=== PATIENT | female | born 1945 | race Caucasian/White ===

== ENCOUNTER → 2016-07-29 | Outpatient (CLI) | payer MEDICARE ==
--- NOTE | 2016-07-29 14:48 | US ---
EXAMINATION TYPE: US kidneys/renal and bladder DATE OF EXAM: 07/29/2016 11:13 AM COMPARISON: NONE CLINICAL HISTORY: Hematuria R31.9. Microscopic hematuria, no symtpoms, recent UTI's EXAM MEASUREMENTS: Right Kidney: 10.3 x 4.7 x 4.9cm Left Kidney: 10.2 x 4.6 x 4.4cm TECHNOLOGIST IMPRESSION: Right Kidney: wnl Left Kidney: Loop of bowel obscuring left renal, had patient roll RLD and it persisted, images of lef t kidney appear wnl Bladder: wnl Bilateral Jets seen: no IMPRESSION: Normal retroperitoneal ultrasound.
== END | disposition home or self-care (01) ==
LOC: RADUSWWP 10:54
PROVIDERS: ATTEND Internal Medicine Geriatric Medicine
DX: R31.9 Hematuria, unspecified (principal)
CPT/HCPCS: 76770

== ENCOUNTER → 2016-08-22 | Outpatient (CLI) | payer MEDICARE ==
[2016-08-22 12:11] LABS: Basophils % (A) 1 %; CH 30.7; CHCM 32.7; Eosinophils # (A) 0.2 k/uL (0-0.7); Eosinophils % (A) 2 %; HCT 52.2 % (34.0-46.0); HDW 2.64; HGB 16.5 gm/dL (11.4-16.0); Luc # (Auto) 0.14; Luc % (Auto) 2; Lymphocytes # (A) 2.6 k/uL (1.0-4.8); Lymphocytes % (A) 30 %; MCH 29.8 pg (25.0-35.0); MCHC 31.6 g/dL (31.0-37.0); MCV 94.4 fL (80.0-100.0); Mean Platelet Volume 7.2; Monocytes # (A) 0.4 k/uL (0-1.0); Monocytes % (A) 4 %; Neutrophils # (A) 5.4 k/uL (1.3-7.7); Neutrophils % (A) 62 %; RBC 5.53 m/uL (3.80-5.40); RDW 13.6 % (11.5-15.5); WBC 8.8 k/uL (3.8-10.6); WBC (Perox) 8.79
[2016-08-22 12:15] LABS: Appearance,Urine Clear (Clear); Bilirubin,Urine Negative (Negative); Glucose,Urine (UA) Negative (Negative); Ketones,Urine Negative (Negative); Leukocyte Esterase,Urine Moderate (Negative); Mucus,Urine Rare /hpf; Nitrite,Urine Negative (Negative); PH, Urine 7.5 (5.0-8.0); Particle Count 1977; Protein,Urine Trace (Negative); RBC,Urine 5 /hpf (0-5); Specific Gravity,Urine 1.016 (1.001-1.035); Squamous Epithelial Cell,Urine 1 /hpf (0-4); UA Billing (MACRO vs. MICRO) MICRO; Urobilinogen,Urine <2.0 mg/dL (<2.0); WBC,Urine 13 /hpf (0-5)
[2016-08-22 12:25] LABS: ALT 40 U/L (9-52); AST 29 U/L (14-36); Alkaline Phosphatase 93 U/L (38-126); Anion Gap 10 mmol/L; Blood Urea Nitrogen 17 mg/dL (7-17); Calcium 9.8 mg/dL (8.4-10.2); Carbon Dioxide 31 mmol/L (22-30); Chloride 103 mmol/L (98-107); Cholesterol 192 mg/dL (<200); Glucose 108 mg/dL (74-99); HDL Cholesterol 58 mg/dL (40-60); Non-African American GFR(MDRD) >60 (>60 ml/min/1.73 sqM); Potassium 4.3 mmol/L (3.5-5.1); Sodium 144 mmol/L (137-145); Total Bilirubin 0.7 mg/dL (0.2-1.3); Total Protein 7.2 g/dL (6.3-8.2); Triglycerides 191 mg/dL (<150)
== END | disposition home or self-care (01) ==
LOC: LABWHC1 11:28
PROVIDERS: ATTEND Internal Medicine Geriatric Medicine
DX: E11.9 Type 2 diabetes mellitus without complications (principal); E03.9 Hypothyroidism, unspecified; E78.5 Hyperlipidemia, unspecified; Z79.899 Other long term (current) drug therapy
CPT/HCPCS: 36415; 80053; 80061; 81001; 83036; 84439; 84443; 85025

== ENCOUNTER → 2018-02-02 | Outpatient (CLI) | payer MEDICARE ==
[2018-02-02 12:25] LABS: HCT 45.7 % (34.0-46.0); HGB 14.9 gm/dL (11.4-16.0); MCH 30.4 pg (25.0-35.0); MCHC 32.7 g/dL (31.0-37.0); MCV 92.9 fL (80.0-100.0); Mean Platelet Volume 7.7; Platelet Count 204 k/uL (150-450); RBC 4.91 m/uL (3.80-5.40); WBC 8.8 k/uL (3.8-10.6)
[2018-02-02 12:47] LABS: Potassium 3.8 mmol/L (3.5-5.1)
== END | disposition home or self-care (01) ==
LOC: LABPAT 11:50
PROVIDERS: ATTEND Internal Medicine Interventional Cardiology
DX: Z01.812 Encounter for preprocedural laboratory examination (principal); E78.2 Mixed hyperlipidemia; I42.1 Obstructive hypertrophic cardiomyopathy; I25.10 Atherosclerotic heart disease of native coronary artery without angina pectoris
CPT/HCPCS: 36415; 80051; 82565; 84520; 85027

== ENCOUNTER 2018-02-06 09:45 | Day surgery (SDC) | payer MEDICARE ==
[2018-02-02 12:46] VITALS: BMI 27.1
[~2018-02-06 09:45] MED LIST: ALPRAZolam 0.25 MG TAB PO PRN; ASPIRIN 325 MG TAB PO ONE; NITROGLYCERIN SL TABS 0.4 MG TAB SUBLINGUAL PRN; SODIUM CHLORIDE 0.9% 1,000 ML in EMPTY BAG 1 BAG IV ONE
[2018-02-06] MEDS ORDERED: VERAPAMIL 2.5 MG/ML 2 ML AMP ONE ×2 (11:52→12:39)
[2018-02-06] MEDS ORDERED: LIDOCAINE 1% INJ 10MG/ML (20 ML MDV) ONE (11:52)
[2018-02-06] MEDS ORDERED: fentaNYL (PF) 50 MCG/ML 2 ML AMP ONE (11:52)
[2018-02-06] MEDS ORDERED: fentaNYL (PF) 50 MCG/ML 2 ML AMP IV ONE (12:22)
[2018-02-06] MEDS ORDERED: LIDOCAINE 1% INJ 10MG/ML (20 ML MDV) SQ ONE (12:23)
[2018-02-06] MEDS ORDERED: VERAPAMIL SYRINGE (5 MG/10 ML) INTRAARTER ONE (12:29)
[2018-02-06] MEDS ORDERED: CLOPIDOGREL 75 MG TAB ONE (12:42)
[2018-02-06] MEDS ORDERED: BIVALIRUDIN BOLUS 250 MG/50 ML IV ONE (12:43)
[2018-02-06] MEDS ORDERED: BIVALIRUDIN 250 MG in SODIUM CHLORIDE 0.9% 50 ML IV ONE (12:44)
[2018-02-06] MEDS ORDERED: CLOPIDOGREL 75 MG TAB PO ONE (12:48)
[2018-02-06] MEDS ORDERED: NITROGLYCERIN 1000MCG/10ML SYRINGE INTRACORON ONE (12:50)
[2018-02-06] MEDS ORDERED: IOPAMIDOL-370 125ML BTL INJ ONE (13:06)
[2018-02-06] MEDS ORDERED: ATROPINE SULFATE 0.1 MG/ML 10ML SYRINGE IV PRN (13:17)
[2018-02-06] MEDS ORDERED: RX INFO: IV CONTRAST WAS GIVEN 1 EACH MISC MISCELLANE PRN (13:17)
[2018-02-06] MEDS ORDERED: ZOLPIDEM 5 MG TAB PO PRN (13:17)
[2018-02-06] MEDS ORDERED: NITROGLYCERIN SL TABS 0.4 MG TAB SUBLINGUAL PRN (13:17)
[2018-02-06] MEDS ORDERED: MAG HYDROX/AL HYDROX/SIMETH 30 ML CUP PO PRN (13:17)
[2018-02-06] MEDS ORDERED: SODIUM CHLORIDE 0.9% 1,000 ML IV SCH (13:30)
--- NOTE | 2018-02-06 14:20 | CC ---
CARDIAC CATHETERIZATION REPORT Mrs. Valdovinos 72-year-old female known history of hypertension, hyperlipidemia, history of coronary artery disease who has been complaining of episode of fatigue has underwent a myocardial perfusion imaging that revealed evidence of inducible ischemia involving the LAD territory. In view of that, recommendation was made regarding coronary angiography. The procedures, risks and complications were discussed with the patient who is in full understanding and agreement. PROCEDURE: Patient was brought to mobile lab technician in the fasting semi-sedated state, after receiving fentanyl and Benadryl and achieving moderate conscious sedated state. Using Xylocaine anesthesia and Seldinger technique a 6-Bengali sheath was introduced in the right radial artery. Selective right and left angiography were performed using 5-Bengali 3.5 bend right and left Ismael catheter. Multiple views of the coronary artery including hemiaxial views obtained. Following that angioplasty and stenting was performed. Following that, 5-Bengali tight pigtail catheter was introduced in the left ventricle and a 30 degree AYOUB view of the left ventricle was obtained. Following that catheter and sheath were removed. Hemostasis was obtained with deployment of a TR band. There was no immediate complication. Patient is returned to room in stable condition. FINDINGS: Left Main: This is a short size vessel bifurcating left circumflex, left anterior descending artery. Left main coronary artery has no evidence of high-grade stenosis. Left Anterior Descending Artery: This is a large-sized vessel reaching to the apex with a wraparound apex segment giving rise to a very proximal diagonal branch of large caliber. The left anterior descending artery in the proximal segment has a 95-99% stenosis. The mid segment has mild to moderate disease. The rest of the vessel has no high-grade stenosis. The diagonal branch has a plaque of about 30-40% proximally. Left Circumflex: This is a nondominant vessel bifurcating distally PDA and posterolateral segment branches giving rise to large obtuse marginal branch in mid segment. The left circumflex as well as branches have no evidence of obstructive disease. Right Coronary Artery: This is a nondominant vessel small in caliber that has no evidence of high-grade stenosis. Left Ventriculogram: Left ventriculogram is performed 30-degree AYOUB view and reveals normal size and systolic function. Ejection fraction 60%. There was no significant mitral regurgitation. Hemodynamics: There was no gradient across the aortic valve. The left ventricle end- diastolic pressure was 14 to 16 mmHg. CONCLUSION: 1. Critical stenosis in the proximal LAD. 2. Mild to moderate disease in the diagonal branch. 3. Normal left ventricular size and systolic function. RECOMMENDATION: In view of finding anatomy I recommend proceeding with angioplasty and stenting of the LAD. The procedures, risks and complication were discussed with the patient who is in full understanding and agreement. KADEEM / MICHELLE: [id number] /
--- NOTE | 2018-02-06 14:35 | PTCA ---
PERCUTANEOUSTRANS CORORONARY ANGIOGRAPHY Mrs. Ann 72-year-old female who has a known history of coronary artery disease, who presented with an abnormal myocardial perfusion imaging and symptoms of progressive fatigue, underwent a cardiac catheterization, was found to have critical stenosis involving the proximal LAD. In view of that, recommendation was made regarding angioplasty and stenting. The procedures, risks and complications were discussed with the patient who is in full understanding and agreement. PROCEDURE: A 6-Swedish FL 3.5 guiding catheter in the system. After cannulating the left main, a 0.014 advanced medium weight J-wire was advanced across the lesion. Then a 2.5 x 12 mm balloon NC Trek balloon was advanced. One inflation at 10 atmospheres was done. Following that, the balloon was removed and a 3.0 x 12 mm Xience Alpine stent was deployed, postdilated at 14 atmospheres. After the last inflation, after appropriate wait the balloon and the guidewire were withdrawn back in the guiding catheter. Images were obtained and repeated. Those images reveal stable successful stenting. At that point, the guiding catheter, the balloon and the guidewire were removed. Left ventriculogram was performed. Following that, catheter and sheath were removed. Hemostasis was obtained with deployment of a TR band. There was no immediate complication. Patient is returned to her room in a stable condition. Of note, the patient received Angiomax per protocol as well as oral loading dose of clopidogrel and intra-arterial verapamil. She had no significant chest pain or EKG changes with the inflations. RESULTS: Successful stenting of the proximal LAD with reduction of stenosis from 95% to 0%. RECOMMENDATION: Patient be continued on aspirin, Plavix, beta carolina, a PHILIPP inhibitor, statin. The importance of doing treatment was discussed with the patient and her family who are in full understanding and agreement. Of note, the patient was noted to be in atrial fibrillation which was not diagnosed in the past and she will be further evaluated regarding that issue. DURATION OF PROCEDURE: 41 minutes. MMODL / IJN: [id number] /
--- NOTE | 2018-02-06 14:35 | LTR ---
February 06, [address] Jolly: I had the pleasure of performing cardiac catheterization and coronary angioplasty and stenting on Mrs. Valdovinos on February 06 and a full copy of the procedure note will be forwarded to you. In brief, she was found to have significant stenosis in the proximal LAD and underwent successful stenting of that vessel using drug-eluting stent. She was also found at the same time to have atrial fibrillation which is an incidental finding that was not noted in the past. Depending on her progress, further recommendation will be made in that regard. Thank you again for allowing me to participate in her care. Please feel free to call for any questions. Sincerely, MMJUWANL / IJN: [id number] /
[2018-02-06] MEDS: ATENOLOL 25 MG TAB PO SCH (19:58)
[2018-02-06] MEDS ORDERED: LISINOPRIL 2.5 MG TAB PO SCH (21:00)
[2018-02-07 03:21] VITALS: RESP 16
[2018-02-07 07:13] LABS: Anion Gap 2 mmol/L; Blood Urea Nitrogen 15 mg/dL (7-17); Calcium 8.6 mg/dL (8.4-10.2); Carbon Dioxide 30 mmol/L (22-30); Chloride 110 mmol/L (98-107); Glucose 110 mg/dL (74-99); Potassium 3.6 mmol/L (3.5-5.1); Sodium 142 mmol/L (137-145)
[2018-02-07 08:52] VITALS: BP 123/75; PULSE 57; TEMP 97.8
[2018-02-07] MEDS: ATENOLOL 25 MG TAB PO SCH (08:57)
[2018-02-07] MEDS ORDERED: ATORVASTATIN 40 MG TAB PO SCH (09:00)
[2018-02-07] MEDS ORDERED: ASPIRIN 81 MG PO SCH (09:00)
[2018-02-07] MEDS ORDERED: HYDROCHLOROTHIAZIDE 25 MG TAB PO SCH (09:00)
[2018-02-07] MEDS ORDERED: CLOPIDOGREL 75 MG TAB PO SCH (09:00)
--- NOTE | 2018-02-07 10:27 | PN ---
PROGRESS NOTE Mrs. Valdovinos is a 72-year-old female with a history of coronary artery disease, history of hypertension, hyperlipidemia, who presented with abnormal myocardial perfusion imaging, underwent cardiac catheterization and was found to have critical stenosis involving the proximal LAD, underwent successful stenting of that vessel. She was noted to be in atrial fibrillation which was per her has not been diagnosed in the past and she is asymptomatic in that regard. She is feeling well this morning. She denies any chest pain. No dizziness. No palpitation. No nausea. She continued to be on aspirin once a day, Plavix 75 mg daily, atenolol 12.5 mg twice a day, Lipitor 40 mg daily, hydrochlorothiazide 25 mg daily, Zestril 2.5 mg daily. PHYSICAL EXAMINATION: Blood pressure 120/70 with the heart rate in the 60s. LUNGS: Clear. HEART: Irregular, irregular. S1, S2. No S3. No rub with a systolic ejection murmur. No diastolic murmur. ABDOMEN: Soft, nontender. Positive bowel sounds. No organomegaly. EXTREMITIES: No edema. Right radial pulse intact. EKG revealed no acute changes. LAB DATA: Lab data revealed BUN and creatinine 15 and 0.71. Potassium 3.6. IMPRESSION: 1. Status post stenting of the left anterior descending artery. 2. Atrial fibrillation not documented in the past. 3. Hypertension. 4. Hyperlipidemia. RECOMMENDATION: Patient will be discharged home today and will be re-evaluated as an outpatient for the need to receive anticoagulation. MMODL / IJN: [id number] /
[2018-02-16] MEDS ORDERED: ERGOCALCIFEROL 50,000 UNIT CAP PO SCH (09:00)
== END 2018-02-07 11:07 | disposition home or self-care (01) ==
LOC: CATHCVL 09:45 → 6SEL 13:00 → CATHCVL 02-07 11:07
PROVIDERS: ATTEND Internal Medicine Interventional Cardiology
DX: I25.10 Atherosclerotic heart disease of native coronary artery without angina pectoris (principal); I10 Essential (primary) hypertension; I42.1 Obstructive hypertrophic cardiomyopathy; E78.2 Mixed hyperlipidemia; Z79.82 Long term (current) use of aspirin; Z79.899 Other long term (current) drug therapy; Z88.0 Allergy status to penicillin
CPT/HCPCS: 93458; 80048; C9600; C1769 ×2; C1894; C1725; C1887; C1874; J2001; J3010; J0583; Q9967

== ENCOUNTER → 2018-05-09 | Outpatient (CLI) | payer MEDICARE ==
[2018-05-09 14:56] LABS: Basophils % (A) 1 %; Eosinophils # (A) 0.1 k/uL (0-0.7); Eosinophils % (A) 2 %; HCT 47.9 % (34.0-46.0); HGB 15.6 gm/dL (11.4-16.0); Lymphocytes # (A) 1.6 k/uL (1.0-4.8); Lymphocytes % (A) 21 %; MCH 30.9 pg (25.0-35.0); MCHC 32.6 g/dL (31.0-37.0); MCV 94.9 fL (80.0-100.0); Mean Platelet Volume 7.3; Monocytes # (A) 0.3 k/uL (0-1.0); Monocytes % (A) 4 %; Neutrophils # (A) 5.5 k/uL (1.3-7.7); Neutrophils % (A) 71 %; Platelet Count 196 k/uL (150-450); RBC 5.05 m/uL (3.80-5.40); WBC 7.7 k/uL (3.8-10.6)
[2018-05-09 18:51] LABS: Albumin 4.4 g/dL (3.80-4.90); Albumin/Globulin Ratio 2.1 (1.20-2.10); Anion Gap 6.8 mmol/L (4.00-12.00); Calcium 9.6 mg/dL (8.7-10.3); Carbon Dioxide 32.2 mmol/L (21.6-31.8); Globulin 2.1 g/dL (2.1-3.7); LDL Cholesterol,Calculated 83.2 mg/dL (0.0-131.0); Potassium 3.6 mmol/L (3.5-5.5); Total Bilirubin 0.7 mg/dL (0.2-1.2); Total Protein 6.5 g/dL (6.2-8.2); VLDL Calculation 22.8 mg/dL (5.00-40.00)
[2018-05-09 20:19] LABS: Hemoglobin A1C 6.2 % (4.0-6.0)
== END ==
LOC: LABWHC1 13:45
PROVIDERS: ATTEND Internal Medicine Interventional Cardiology
DX: E78.2 Mixed hyperlipidemia (principal); E11.65 Type 2 diabetes mellitus with hyperglycemia; I49.9 Cardiac arrhythmia, unspecified
CPT/HCPCS: 36415; 80053; 80061; 82043; 82550; 82570; 83036; 84439; 84443; 85025

== ENCOUNTER 2018-05-22 08:00 | Day surgery (SDC) | payer MEDICARE ==
[2018-05-17 10:59] VITALS: BMI 26.4
[~2018-05-22 08:00] MED LIST changes: -ALPRAZolam 0.25 MG TAB PO PRN; -ASPIRIN 325 MG TAB PO ONE; +DEXAMETHASONE SOD PHOSPHATE 10 MG/ML 1 ML VIAL IV ONE; +HYDROmorphone 0.5 MG/0.5 ML SYRINGE IVP PRN; +LACTATED RINGERS 1,000 ML IV SCH; +LIDOCAINE 1% 20 ML VIAL (10MG/ML) FOR IV START INTRADERMA PRN; -NITROGLYCERIN SL TABS 0.4 MG TAB SUBLINGUAL PRN; +ONDANSETRON 4 MG/2 ML VIAL IVP ONE; +SCOPOLAMINE 1.5MG/72HR PATCH TRANSDERM ONE; +SODIUM CHLORIDE 0.9% 1,000 ML IV SCH; -SODIUM CHLORIDE 0.9% 1,000 ML in EMPTY BAG 1 BAG IV ONE
[2018-05-22 08:30] VITALS: TEMP 98.3
[2018-05-22] MEDS ORDERED: SODIUM CHLORIDE 0.9% 500 ML 500 ML IV ONE (08:30)
[2018-05-22] MEDS ORDERED: PROPOFOL 10 MG/ML 20 ML VIAL IV ONE (08:51)
[2018-05-22] MEDS ORDERED: LIDOCAINE 1% INJ 10MG/ML (20 ML MDV) ONE (08:51)
[2018-05-22] MEDS: BENZOCAINE SPRAY 1 CAN MUCOUS MEM ONE ×2 (09:01→09:16)
[2018-05-22] MEDS ORDERED: NITROGLYCERIN SL TABS 0.4 MG TAB SUBLINGUAL PRN (09:34)
[2018-05-22 09:41] VITALS: RESP 16
[2018-05-22] MEDS ORDERED: SODIUM CHLORIDE 0.9% 1,000 ML IV SCH (09:45)
[2018-05-22] MEDS ORDERED: ERGOCALCIFEROL 50,000 UNIT CAP PO SCH (09:45)
--- NOTE | 2018-05-22 09:48 | ECHOT ---
TRANSESOPHAGEAL ECHOCARDIOGRAM INDICATION: Evaluation of left atrial appendage. PROCEDURE: After explaining the procedure to the patient, its risks and complication, blood pressure, heart rate, O2 saturation was monitored. The throat was sprayed with Cetacaine. She received sedation per the Anesthesia Department. The probe was introduced into the esophagus without difficulty. Images were obtained from that. The probe was removed. There was no immediate complication. FINDINGS: Left atrial size is mildly dilated. Left atrial appendage is normal. Left ventricular size and systolic function normal. The aortic valve revealed fibrocalcific change of the aortic cusp with preserved opening. Mitral valve revealed mild mitral annulus calcification, tricuspid valve is normal. Descending thoracic aorta revealed mild atherosclerotic changes. No pericardial effusion was noted. Contrast bubble study revealed no evidence of shunting across the interatrial septum. Doppler pulse wave and color Doppler obtained and revealed mild mitral with moderate to severe tricuspid regurgitation and mild aortic regurgitation. There was no shunting by color Doppler study. CONCLUSION: 1. Mild dilated left atrium with normal appearance to the left atrial appendage. 2. Normal left ventricular size and systolic function. 3. Aortic sclerosis with mild aortic regurgitation. 4. Mitral annulus calcification with mild mitral regurgitation. 5. Moderate to severe tricuspid regurgitation with no evidence of pulmonary hypertension. 6. Mild atherosclerotic changes of the descending thoracic aorta. 7. No pericardial effusion was noted. MMODL / IJN: [id number] /
--- NOTE | 2018-05-22 09:48 | CE ---
CARDIAC ELECTROPHYSIOLOGY REPORT CARDIOVERSION PROCEDURE NOTE: INDICATION: Atrial fibrillation. PROCEDURE: After explaining the procedure to the patient, its risks and complication, blood pressure, heart rate, O2 saturation was monitored. After obtaining sedated state and performing transesophageal echocardiogram, a synchronized biphasic cardioversion using 100 joules was performed with mandaen of normal sinus rhythm. There was no immediate complication. KADEEM / AUBREYN: [id number] /
[2018-05-22 11:17] VITALS: BP 131/80; PULSE 50
[2018-05-22] MEDS ORDERED: ATENOLOL 25 MG TAB PO SCH (21:00)
[2018-05-22] MEDS ORDERED: LISINOPRIL 5 MG TAB PO SCH (21:00)
[2018-05-23] MEDS ORDERED: RIVAROXABAN 15 MG TAB PO SCH (09:00)
[2018-05-23] MEDS ORDERED: HYDROCHLOROTHIAZIDE 25 MG TAB PO SCH (09:00)
[2018-05-23] MEDS ORDERED: NON-FORMULARY DRUG (Ubidecarenone [Co Q-10] 200 MG) PO SCH (09:00)
[2018-05-23] MEDS ORDERED: ATORVASTATIN 40 MG TAB PO SCH (09:00)
[2018-05-23] MEDS ORDERED: CLOPIDOGREL 75 MG TAB PO SCH (09:00)
== END 2018-05-22 11:32 | disposition home or self-care (01) ==
LOC: CATHCVL 08:00
PROVIDERS: ATTEND Internal Medicine Interventional Cardiology
DX: I48.1 Persistent atrial fibrillation (principal); I08.0 Rheumatic disorders of both mitral and aortic valves; I70.0 Atherosclerosis of aorta; Z95.5 Presence of coronary angioplasty implant and graft; E78.2 Mixed hyperlipidemia; I10 Essential (primary) hypertension; Z79.01 Long term (current) use of anticoagulants; Z79.02 Long term (current) use of antithrombotics/antiplatelets; Z79.899 Other long term (current) drug therapy; Z88.0 Allergy status to penicillin
CPT/HCPCS: 93312; 93320; 93325; 92960; J2001; J2704

== ENCOUNTER 2018-07-05 10:11 | Day surgery (SDC) | payer MEDICARE ==
[2018-07-04 13:35] VITALS: BMI 26.6
[~2018-07-05 10:11] MED LIST changes: -DEXAMETHASONE SOD PHOSPHATE 10 MG/ML 1 ML VIAL IV ONE; -HYDROmorphone 0.5 MG/0.5 ML SYRINGE IVP PRN; -LACTATED RINGERS 1,000 ML IV SCH; -LIDOCAINE 1% 20 ML VIAL (10MG/ML) FOR IV START INTRADERMA PRN; -ONDANSETRON 4 MG/2 ML VIAL IVP ONE; -SCOPOLAMINE 1.5MG/72HR PATCH TRANSDERM ONE
[2018-07-05 10:45] VITALS: BP 196/86; PULSE 49; RESP 16; TEMP 98.2
--- NOTE | 2018-07-05 11:38 | PN ---
PROGRESS NOTE Patient presented to undergo electrical cardioversion. On presentation today, she is back in sinus mechanism spontaneously with some pauses. At this time, she should be able to be discharged home. Will decrease the dose of the amiodarone and follow her as an outpatient. KADEEM / MICHELLE: [id number] /
== END 2018-07-05 11:45 | disposition home or self-care (01) ==
LOC: CATHCVL 10:11
PROVIDERS: ATTEND Internal Medicine Interventional Cardiology
DX: I25.10 Atherosclerotic heart disease of native coronary artery without angina pectoris (principal); I48.1 Persistent atrial fibrillation; Z53.8 Procedure and treatment not carried out for other reasons; E78.2 Mixed hyperlipidemia; I42.1 Obstructive hypertrophic cardiomyopathy; I10 Essential (primary) hypertension; Z95.5 Presence of coronary angioplasty implant and graft; Z79.82 Long term (current) use of aspirin; Z79.02 Long term (current) use of antithrombotics/antiplatelets; Z79.899 Other long term (current) drug therapy; Z79.01 Long term (current) use of anticoagulants; Z88.0 Allergy status to penicillin
CPT/HCPCS: 93005

== ENCOUNTER → 2018-07-30 | Outpatient (CLI) | payer MEDICARE ==
[2018-07-30 17:00] LABS: HCT 45.6 % (34.0-46.0); HGB 15.5 gm/dL (11.4-16.0); MCH 31.7 pg (25.0-35.0); MCHC 33.9 g/dL (31.0-37.0); MCV 93.7 fL (80.0-100.0); Mean Platelet Volume 7.9; Platelet Count 192 k/uL (150-450); RBC 4.87 m/uL (3.80-5.40); RDW 13.9 % (11.5-15.5); WBC 6.6 k/uL (3.8-10.6)
[2018-07-30 17:13] LABS: Anion Gap 6 mmol/L; Blood Urea Nitrogen 25 mg/dL (7-17); Carbon Dioxide 28 mmol/L (22-30); Chloride 106 mmol/L (98-107); Glucose 105 mg/dL (74-99); Potassium 3.9 mmol/L (3.5-5.1); Sodium 140 mmol/L (137-145)
== END ==
LOC: LABPAT 16:06
PROVIDERS: ATTEND Internal Medicine Cardiovascular Disease
DX: Z01.812 Encounter for preprocedural laboratory examination (principal); I48.1 Persistent atrial fibrillation; I25.10 Atherosclerotic heart disease of native coronary artery without angina pectoris
CPT/HCPCS: 36415; 80051; 82565; 82947; 84520; 85027

== ENCOUNTER 2018-08-01 10:48 | Day surgery (SDC) | payer MEDICARE ==
[2018-07-31 11:01] VITALS: BMI 26.6
[~2018-08-01 10:48] MED LIST changes: +CLINDAMYCIN 600 MG in SODIUM CHLORIDE 0.9% IRRIGATIO 250 ML IRRIGATION ONE; +CLINDAMYCIN 900 MG in DEXTROSE 5% IN WATER 50 ML IVPB ONE
[2018-08-01 12:41] LABS: Glucose,Whole Blood 106 mg/dL (75-99)
[2018-08-01] MEDS ORDERED: IOPAMIDOL-250 50ML BTL IV ONE (12:41)
[2018-08-01] MEDS ORDERED: LIDOCAINE 1% INJ 10MG/ML (20 ML MDV) ONE (12:49)
[2018-08-01] MEDS ORDERED: fentaNYL (PF) 50 MCG/ML 2 ML AMP ONE (12:49)
[2018-08-01] MEDS ORDERED: fentaNYL (PF) 50 MCG/ML 2 ML AMP IV ONE (12:57)
[2018-08-01] MEDS ORDERED: MIDAZOLAM 2 MG/2 ML VIAL IV ONE (12:58)
[2018-08-01] MEDS ORDERED: LIDOCAINE 1% INJ 10MG/ML (20 ML MDV) SQ ONE ×2 (13:04→13:13)
[2018-08-01] MEDS ORDERED: ACETAMINOPHEN TAB 325 MG TAB PO PRN (13:56)
--- NOTE | 2018-08-01 14:08 | P.PCN ---
Date of Procedure: 08/01/18 Preoperative Diagnosis: Sick sinus syndrome Postoperative Diagnosis: The same Procedure(s) Performed: Dual-chamber permanent pacemaker implantation Description of Procedure: HISTORY: This is a 72-year-old female with history of persistent atrial fibrillation was maintaining sinus rhythm but with intermittent atrial fibrillation with long pauses of more than 4 seconds associated with symptoms of dizziness. 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 Payne. CONSENT:I have discussed the risks, benefits and alternative therapies for the above-mentioned procedure and for both sedation/analgesia as well as necessary blood product administration, if indicated, as they pertain to this patient. The patient has indicated understanding and acceptance of the risks and procedures discussed. PROCEDURE: Patient was brought to the lab in a fasting state. Patient was prepped and draped in the usual fashion. Patient was given IV sedation with fentanyl and Versed. The skin below the left clavicle was infiltrated with lidocaine. An incision was made parallel to deltopectoral groove was deepened until the pectoral fascia was exposed. A pocket was created by blunt dissection and cautery. Axillary venography was performed to delineate the course of the axillary vein. 2 sticks were performed into extrathoracic portion of the axillary vein and 2 sheaths were advanced over the guidewires and left in subclavian vein. Conscious Sedation: Versed 1mg Fentanyl 25 g Duration 50minutes LEADS: ATRIAL: This is manufactured by [employer]. Model number is [id number] and the serial number is [id number]. VENTRICULAR: This is manufactured by [employer]. Model number is [id number] and the serial number is [id number] The ventricular lead is maneuvered l with help of a straight and curved stylets into the left ventricle apical region. Satisfactory position was obtained and threshold measurements were made. The atrial lead was then maneuvered into the right atrial appendage. And thresholds were obtained. THRESHOLDS: ATRIUM: Patient was in atrial flutter with flutter waves of about 2. Impedance was about 500 ohms. Pacing threshold could not be measured. VENTRICLE: The minimum patient threshold was 0.5 at a pulse width of 0.4 with impedance of about 750 R-wave: 8.3 The leads and pulse generator remained in the pocket after it was washed with antibiotics. Pocket was closed in the usual fashion. The fascia was closed with 2-0 Prolene ,the subcutaneous tissue was closed with 3-0 Prolene and the skin was closed with 4-0 Prolene. PROGRAMMING: MODE: AAIR with mode switch to DDD RATE: 50 to 130 OUTPUT: Atrium: 3.5 V Ventricle: 3.5 V FINAL IMPRESSION: #1 axillary venography #2. Successful implantation of a dual- chamber pacemaker COMPLICATIONS: None PLAN:. Patient will be monitored on the telemetry unit. We'll start her on aspirin today. If stable, will start the Plavix tomorrow and she can start Xarelto in 48 hours.
[2018-08-01] MEDS ORDERED: NITROGLYCERIN SL TABS 0.4 MG TAB SUBLINGUAL PRN (15:21)
[2018-08-01] MEDS ORDERED: AMIODARONE 100 MG TAB PO SCH (17:30)
[2018-08-01] MEDS: CLINDAMYCIN 900 MG in DEXTROSE 5% IN WATER 50 ML IVPB SCH ×4 (17:42→23:41)
[2018-08-01] MEDS: HYDROcodone/APAP 5-325MG 1 EACH TAB PO PRN (20:34)
[2018-08-01] MEDS ORDERED: ASPIRIN 81 MG PO SCH (21:00)
[2018-08-01] MEDS ORDERED: ATORVASTATIN 40 MG TAB PO SCH (21:00)
[2018-08-01] MEDS ORDERED: LISINOPRIL 2.5 MG TAB PO SCH (21:00)
[2018-08-02] MEDS: HYDROcodone/APAP 5-325MG 1 EACH TAB PO PRN (00:16)
[2018-08-02] MEDS: CLINDAMYCIN 900 MG in DEXTROSE 5% IN WATER 50 ML IVPB SCH ×4 (06:16→11:54)
--- NOTE | 2018-08-02 08:07 | XR ---
EXAMINATION TYPE: XR chest 2V DATE OF EXAM: 08/02/2018 COMPARISON: 05/29/2013 HISTORY: Lead placement check TECHNIQUE: Frontal and lateral views of the chest are obtained. FINDINGS: There is been interval placement of a dual lead left-sided cardiac device with a sinoatria l lead and ventricular lead appearing appropriately placed. No postprocedural pneumothorax is seen. L ungs are clear. Cardia mediastinal silhouette is within normal limits. Mild S-shaped scoliotic curvat ure of the visualized thoracolumbar spine and mild multilevel degenerative changes are noted. IMPRESSION: Interval insertion of a dual lead left-sided cardiac device, appearing appropriately benoit bhanu. No postprocedural pneumothorax.
[2018-08-02] MEDS ORDERED: NON-FORMULARY DRUG (Ubidecarenone [Co Q-10] 200 MG) PO SCH (09:00)
[2018-08-02] MEDS ORDERED: AZO PO SCH (09:00)
[2018-08-02] MEDS ORDERED: HYDROCHLOROTHIAZIDE 25 MG TAB PO SCH (09:00)
[2018-08-02] MEDS ORDERED: ATENOLOL 12.5 MG TAB PO SCH (09:00)
[2018-08-02] MEDS ORDERED: ERGOCALCIFEROL 50,000 UNIT CAP PO SCH (12:00)
[2018-08-02 13:01] VITALS: BP 143/75; PULSE 60; RESP 18; TEMP 97.8
--- NOTE | 2018-08-03 07:07 | P.DS ---
Providers Date of admission: 08/01/2018 Attending physician: Lee Gonzalez Primary care physician: Reinier Jolly - Discharge Diagnosis(es) (1) Sick sinus syndrome Status: Acute (2) CAD (coronary artery disease) Status: Acute (3) A-fib Status: Acute Hospital Course: This is a 72-year-old female with history of coronary artery disease, atrial fibrillation was found to have evidence of sick sinus syndrome with long pauses associated with presyncopal episodes. Patient is advised to have permanent pacemaker implantation. Patient had a dual-chamber pacemaker implantation and axillary venography. Patient is clinically stable overnight. Did not have any chest pain or shortness of breath. He had mild nausea this morning. The dressing seems to be dry with mild staining. No arrhythmias noted. Chest x- ray showed proper lead position. The threshold appeared to be stable. Patient is being discharged home to continue home medication except hold xarelto until tomorrow. Patient will start Plavix today. Patient is given usual instructions. She is advised to keep the dressing dry until seen in the office in one week. Advised to avoid any heavy exertion with the left arm and keep the arm below the shoulder level. Patient will also continue prophylactic antibiotics. Follow-up in the office in a week with. Plan - Discharge Summary Discharge Rx Participant: No New Discharge Prescriptions: Continue Lisinopril [Zestril] 2.5 mg PO HS Hydrochlorothiazide [Hydrodiuril] 25 mg PO DAILY Ergocalciferol [Vitamin D2 (DRISDOL)] 50,000 unit PO Q14D Atenolol [Tenormin] 12.5 mg PO QAM Clopidogrel [Plavix] 75 mg PO DAILY #90 tab Nitroglycerin Sl Tabs [Nitrostat] 0.4 mg SUBLINGUAL Q5M PRN #25 tab PRN Reason: Chest Pain Ubidecarenone [Co Q-10] 200 mg PO DAILY Atorvastatin [Lipitor] 40 mg PO HS Azo(Dose Unknown) 1 tab PO DAILY Amiodarone [Cordarone] 100 mg PO W/SUPPER #0 Discontinued Rivaroxaban [Xarelto] 15 mg PO W/SUPPER Discharge Medication List Atenolol [Tenormin] 12.5 mg PO QAM 02/02/18 [History] Ergocalciferol [Vitamin D2 (DRISDOL)] 50,000 unit PO Q14D 02/02/18 [History] Hydrochlorothiazide [Hydrodiuril] 25 mg PO DAILY 02/02/18 [History] Lisinopril [Zestril] 2.5 mg PO HS 02/02/18 [History] Clopidogrel [Plavix] 75 mg PO DAILY #90 tab 02/07/18 [Rx] Nitroglycerin Sl Tabs [Nitrostat] 0.4 mg SUBLINGUAL Q5M PRN #25 tab 02/07/18 [Rx ] Ubidecarenone [Co Q-10] 200 mg PO DAILY 05/17/18 [History] Atorvastatin [Lipitor] 40 mg PO HS 07/04/18 [History] Azo(Dose Unknown) 1 tab PO DAILY 07/04/18 [History] Amiodarone [Cordarone] 100 mg PO W/SUPPER #0 07/05/18 [Rx] Follow up Appointment(s)/Referral(s): Ciara Payne MD [STAFF PHYSICIAN] - 08/08/18 1:30 pm (Follow up in the [facility] for a site check as scheduled for you) Patient Instructions/Handouts: Pacemaker (GEN) Activity/Diet/Wound Care/Special Instructions: 1. Keep dressing clean and dry. Do not remove dressing 2. You may shower and cover dressing with saran or cling wrap. No baths. 3. Do not raise left arm above heart level. No backscratching, reaching up to shelves, pushing, pulling, or lifting >5lbs. 4. No golfing, swinging an axe, swimming, shoveling snow, etc with left arm 5. You may use your right arm freely 6. You may perform pendulum exercises with left arm to prevent frozen shoulder. 7. Contact Cardiology office if you notice any bleeding, swelling, increased pain, drainage of cloudy fluids, or fevers. 8. Follow up in the Device [facility] as scheduled for you. Prescription for Cleocin will be at [facility] on . Restart Plavix tonight Restart Xarelto tomorrow Discharge Disposition: HOME SELF-CARE
== END 2018-08-02 14:48 | disposition home or self-care (01) ==
LOC: CATHEP 10:48 → 1SOBS 14:08 → CATHEP 08-02 14:48
PROVIDERS: ATTEND Internal Medicine Cardiovascular Disease
DX: I48.1 Persistent atrial fibrillation (principal); I25.10 Atherosclerotic heart disease of native coronary artery without angina pectoris; I42.1 Obstructive hypertrophic cardiomyopathy; I49.5 Sick sinus syndrome; E78.2 Mixed hyperlipidemia; I10 Essential (primary) hypertension; Z95.5 Presence of coronary angioplasty implant and graft; Z79.02 Long term (current) use of antithrombotics/antiplatelets; Z79.01 Long term (current) use of anticoagulants; Z88.0 Allergy status to penicillin; Z79.899 Other long term (current) drug therapy
CPT/HCPCS: 33208; 71046; C1785; C1898; J2250; J2001; J3010; Q9966

== ENCOUNTER → 2018-11-15 | Outpatient (CLI) | payer MEDICARE ==
[2018-11-15 13:07] LABS: Basophils % (A) 0 %; Eosinophils # (A) 0.2 k/uL (0-0.7); Eosinophils % (A) 3 %; HCT 45.4 % (34.0-46.0); HGB 14.6 gm/dL (11.4-16.0); Lymphocytes # (A) 1.5 k/uL (1.0-4.8); Lymphocytes % (A) 24 %; MCH 30.2 pg (25.0-35.0); MCHC 32.2 g/dL (31.0-37.0); MCV 93.8 fL (80.0-100.0); Mean Platelet Volume 8.1; Monocytes # (A) 0.3 k/uL (0-1.0); Monocytes % (A) 5 %; Neutrophils # (A) 4.2 k/uL (1.3-7.7); Neutrophils % (A) 66 %; Platelet Count 173 k/uL (150-450); RBC 4.84 m/uL (3.80-5.40); RDW 14.7 % (11.5-15.5); WBC 6.4 k/uL (3.8-10.6)
[2018-11-15 20:41] LABS: Albumin/Globulin Ratio 2.11 (1.60-3.17); Anion Gap 9.2 mmol/L (4.00-12.00); Carbon Dioxide 27.8 mmol/L (21.6-31.8); Globulin 1.9 g/dL (1.6-3.3); LDL Cholesterol,Calculated 90.4 mg/dL (0.0-131.0); Potassium 3.9 mmol/L (3.5-5.5); Total Bilirubin 0.5 mg/dL (0.2-1.2); Total Protein 5.9 g/dL (6.2-8.2); VLDL Calculation 24.6 mg/dL (5.00-40.00)
== END | disposition home or self-care (01) ==
LOC: LABWHC1 12:12
PROVIDERS: ATTEND Internal Medicine Interventional Cardiology
DX: Z00.00 Encounter for general adult medical examination without abnormal findings (principal); D50.8 Other iron deficiency anemias; I25.10 Atherosclerotic heart disease of native coronary artery without angina pectoris; E11.42 Type 2 diabetes mellitus with diabetic polyneuropathy; I27.0 Primary pulmonary hypertension; E78.2 Mixed hyperlipidemia
CPT/HCPCS: 36415; 80053; 80061; 83036; 84439; 84443; 85025

== ENCOUNTER → 2019-03-19 | Outpatient (CLI) | payer MEDICARE ==
[2019-03-19 13:15] LABS: Basophils % (A) 0 %; Eosinophils # (A) 0.1 k/uL (0-0.7); Eosinophils % (A) 2 %; HGB 14.8 gm/dL (11.4-16.0); Lymphocytes # (A) 1.6 k/uL (1.0-4.8); Lymphocytes % (A) 24 %; MCH 31.6 pg (25.0-35.0); MCHC 34.3 g/dL (31.0-37.0); MCV 91.9 fL (80.0-100.0); Monocytes # (A) 0.3 k/uL (0-1.0); Monocytes % (A) 5 %; Neutrophils # (A) 4.5 k/uL (1.3-7.7); Neutrophils % (A) 68 %; Platelet Count 194 k/uL (150-450); RBC 4.68 m/uL (3.80-5.40); RDW 13.5 % (11.5-15.5); WBC 6.6 k/uL (3.8-10.6)
[2019-03-19 19:04] LABS: BUN/Creat Ratio 24.44 Ratio (12.00-20.00); Calcium 9.2 mg/dL (8.7-10.3); Chol/HDL Ratio 3.27; Potassium 4.4 mmol/L (3.5-5.5); Total Bilirubin 0.6 mg/dL (0.3-1.2)
[2019-03-19 19:12] LABS: T4, Free (Free Thyroxine) 1.2 ng/dL (0.80-1.80)
== END | disposition home or self-care (01) ==
LOC: LABWHC1 11:41
PROVIDERS: ATTEND Internal Medicine Interventional Cardiology
DX: E78.2 Mixed hyperlipidemia (principal); I25.10 Atherosclerotic heart disease of native coronary artery without angina pectoris; E11.42 Type 2 diabetes mellitus with diabetic polyneuropathy
CPT/HCPCS: 36415; 80053; 80061; 83036; 84439; 84443; 85025

== ENCOUNTER → 2021-07-16 | Outpatient (CLI) | payer MEDICARE ==
--- NOTE | 2021-07-19 11:04 | MM ---
Reason for exam: screening (asymptomatic). Last mammogram was performed 5 years and 4 months ago. History: Patient is postmenopausal. Took estrogen for 2 months beginning at age 54. Took progesterone for 2 months beginning at age 54. Physical Findings: A clinical breast exam by your physician is recommended on an annual basis and results should be correlated with mammographic findings. MG 3D Screening Mammo W/Cad Bilateral CC and MLO view(s) were taken. Prior study comparison: March 18, 2016, bilateral MG 3d screening mammo w/cad. January 08, 2015, bilateral MG screening mammo w CAD. Generator device over the left pectoralis. No significant changes when compared with prior studies. ASSESSMENT: Negative, BI-RAD 1 RECOMMENDATION: Routine screening mammogram of both breasts in 1 year.
== END | disposition home or self-care (01) ==
LOC: RADMAMWWP 14:35
PROVIDERS: ATTEND Internal Medicine Geriatric Medicine
DX: Z12.31 Encounter for screening mammogram for malignant neoplasm of breast (principal); Z78.0 Asymptomatic menopausal state
CPT/HCPCS: 77063; 77067

== ENCOUNTER → 2021-09-30 | Outpatient (CLI) | payer MEDICARE ==
--- NOTE | 2021-09-30 16:20 | CT ---
EXAMINATION TYPE: CT brain wo con DATE OF EXAM: 09/30/2021 COMPARISON: None available HISTORY: Unsteady gait. CT DLP: 1135.1 mGycm Automated exposure control for dose reduction was used. TECHNIQUE: CT scan of the brain is performed without IV contrast administration. FINDINGS: Brain volume loss changes, likely age-related. Scattered arterial atherosclerotic calcifications. No acute intracranial hemorrhage. No gross acute cortical infarct. No midline shift, herniation or ventr iculomegaly. Unremarkable boone-white matter differentiation, basal cisterns, sella and CP angles. No gross space-o ccupying lesion, vasogenic edema or mass effect. Unremarkable orbits. Clear visualized paranasal sinuses and mastoid air cells. Unremarkable calvarial bones. IMPRESSION: No acute intracranial abnormality or gross space-occupying lesion by this nonenhanced CT scan.
--- NOTE | 2021-09-30 21:50 | CT ---
EXAMINATION TYPE: CT soft tissue neck wo con CT DLP: 535.1 mGycm, Automated exposure control for dose reduction was used. DATE OF EXAM: 09/30/2021 3:17 PM COMPARISON: None. CLINICAL INDICATION:Female, 75 years old with history of R25.1. M54.50 R26.81. M54.2; Unsteady gait. TECHNIQUE: Standard enhanced CT of the neck following intravenous administration of 100 cc of Isovue 300. Axial sections with coronal and sagittal reformats were obtained. FINDINGS: Brain: Visualized portions are grossly unremarkable. Orbits: Unremarkable Sinuses: Grossly unremarkable. Spaces of the neck: Clear and symmetric. Musculoskeletal: Degenerative disc disease changes of the visualized spine are present. These changes are most pronounced at C4-C7 with an straightening of the cervical spine, osteophytes, vacuum disc p henomenon, disc space narrowing. There is at least mild to moderate spinal canal stenosis most pronou nced at C4-C5 and C5-C6. There is varying degrees of neural foraminal stenosis throughout the spine. Anterolisthesis of C7 on T1, grade 1. Lymph nodes: Multiple nonenlarged lymph nodes are seen along both anterior chains of the neck. Vascular structures: Minimal atherosclerotic calcifications of the internal carotid arteries in scatt ered arterial vasculature. Thoracic Inlet/airway: Airway is patent. The lung apices are clear. Soft tissues/Thyroid: Heterogenous appearing thyroid. The remainder of the soft tissues are unremarka ble. Other: none. IMPRESSION 1. No definite evidence for acute process. 2. Moderate to severe multilevel disc degeneration changes most pronounced C4-C7 with mild to moderat e spinal canal stenosis C4-C5 and C5-C6.
--- NOTE | 2021-09-30 21:59 | CT ---
EXAMINATION TYPE: CT lumbar spine wo con CT DLP: 817 mGycm, Automated exposure control for dose reduction was used. DATE OF EXAM: 09/30/2021 3:17 PM COMPARISON: None. CLINICAL INDICATION:Female, 75 years old with history of R25.1,M54.50,R26.81,M54.2, Unsteady gait and low back pain. TECHNIQUE: Multiple axial images were obtained from the midportion of T11 through the sacroiliac africa nts. Soft tissue and bone windows in coronal and sagittal planes were obtained and reviewed. FINDINGS: Alignment: There are 5 lumbar type vertebral bodies. S-shaped scoliosis throughout the thoracolumbar spine. Bone: No evidence of fracture is identified. Multilevel disc degeneration changes with endplate spur ring and disc osteophyte complex's echogenicity seroma, disc space narrowing are present. Discs: T12-L1: No spinal canal or neural foraminal stenosis is identified. L1-L2: Mild facet joint arthropathy, disc osteophyte complex result in mild spinal canal stenosis mil d to moderate left neural foraminal stenosis. The right neural foramen is patent. L2-L3: Facet joint arthropathy and disc osteophyte complex result in mild to mild to moderate left ne ural foraminal stenosis mild spinal canal stenosis. Mild right neural foraminal stenosis. L3-L4: Facet joint arthropathy and disc osteophyte complex result in mild to moderate right neural fo raminal stenosis and moderate spinal canal stenosis. Left neural foramen is patent. L4-L5: Facet joint arthropathy and disc osteophyte complex result in mild to moderate to severe righ t neural foraminal stenosis and moderate to severe spinal canal stenosis. Left neural foramen is killian nt. L5-S1: Facet joint arthropathy result in mild to moderate bilateral neural foraminal stenosis. Spinal canal is patent. Other: Nonobstructing left 2 mm renal calculus. There is atherosclerosis of the arterial vasculature. IMPRESSION: 1. Multilevel disc degeneration changes with scoliosis changes most pronounced at L4-L5 with moderate to severe spinal canal stenosis. Additional varying degrees of spinal canal and neural foraminal halina nosis throughout the lumbar spine as described above. Consider further evaluation with MRI of lumbar spine. 2. Nonobstructing left renal calculus.
== END | disposition home or self-care (01) ==
LOC: RADCTMAIN 14:03
PROVIDERS: ATTEND Psychiatry & Neurology Neurology
DX: M50.323 Other cervical disc degeneration at C6-C7 level (principal); M48.02 Spinal stenosis, cervical region; M51.36 Other intervertebral disc degeneration, lumbar region; M48.061 Spinal stenosis, lumbar region without neurogenic claudication; M99.73 Connective tissue and disc stenosis of intervertebral foramina of lumbar region; N20.0 Calculus of kidney; R25.1 Tremor, unspecified
CPT/HCPCS: 70450; 70490; 72131

== ENCOUNTER 2021-10-22 15:55 | Emergency (ER) | payer MEDICARE ==
--- NOTE | 2021-10-22 20:41 | ED ---
URI HPI - General Chief Complaint: Upper Respiratory Infection Stated Complaint: Covid+ Time Seen by Provider: 10/22/21 20:30 Source: patient Mode of arrival: ambulatory Limitations: no limitations - History of Present Illness Initial Comments: 76-year-old female with past medical history of A. fib, coronary artery disease presents to the emergency department with cold symptoms for the last 3 days. She has a fever, nausea, nonproductive cough. Her daughter did test her today for Covid and it was positive. Presents to the emergency department for possible treatment options. She states the majority of her symptoms are improved at this time. No other alleviating, precipitating or modifying factors - Related Data Home Medications Medication Instructions Recorded Confirmed Ergocalciferol [Vitamin D2 50,000 unit PO Q14D 02/02/18 08/01/18 (DRISDOL)] atenoloL [Tenormin] 12.5 mg PO QAM 02/02/18 08/01/18 hydroCHLOROthiazide [Hydrodiuril] 25 mg PO DAILY 02/02/18 08/01/18 lisinopriL [Zestril] 2.5 mg PO HS 02/02/18 08/01/18 Ubidecarenone [Co Q-10] 200 mg PO DAILY 05/17/18 08/01/18 Atorvastatin [Lipitor] 40 mg PO HS 07/04/18 08/01/18 Azo(Dose Unknown) 1 tab PO DAILY 07/04/18 08/01/18 Previous Rx's Medication Instructions Recorded Clopidogrel [Plavix] 75 mg PO DAILY #90 tab 02/07/18 Nitroglycerin Sl Tabs [Nitrostat] 0.4 mg SUBLINGUAL Q5M PRN #25 tab 02/07/18 Amiodarone [Cordarone] 100 mg PO W/SUPPER #0 07/05/18 Allergies Allergy/AdvReac Type Severity Reaction Status Date / Time lactose Allergy Unknown Verified 10/22/21 16:01 Penicillins Allergy constipatio Verified 10/22/21 16:01 n,rash antihistamines. Allergy "loopy" Uncoded 10/22/21 16:01 Review of Systems ROS Statement: Those systems with pertinent positive or pertinent negative responses have been documented in the HPI. ROS Other: All systems not noted in ROS Statement are negative. Past Medical History Past Medical History: Atrial Fibrillation, Coronary Artery Disease (CAD), Hyperlipidemia, Hypertension, Osteoarthritis (OA) Additional Past Medical History / Comment(s): heart murmer, diverticulosis, " prediabetic"diet control, uses cane for balance problems History of Any Multi-Drug Resistant Organisms: None Reported Past Surgical History: Heart Catheterization With Stent Additional Past Surgical History / Comment(s): total 3 stents, colonoscopy, FALLON/cardioversion, Past Anesthesia/Blood Transfusion Reactions: No Reported Reaction Date of Last Stent Placement:: 02/06/18 Past Psychological History: No Psychological Hx Reported Smoking Status: Never smoker Past Alcohol Use History: Rare Past Drug Use History: None Reported - Past Family History Mother Family Medical History: No Reported History Son(s) Family Medical History: Deep Vein Thrombosis (DVT) General Exam Limitations: no limitations General appearance: alert, in no apparent distress Head exam: Present: atraumatic, normocephalic, normal inspection Eye exam: Present: normal appearance, PERRL, EOMI. Absent: scleral icterus, conjunctival injection, periorbital swelling ENT exam: Present: normal exam, mucous membranes moist Neck exam: Present: normal inspection. Absent: tenderness, meningismus, lymphadenopathy Respiratory exam: Present: normal lung sounds bilaterally. Absent: respiratory distress, wheezes, rales, rhonchi, stridor Cardiovascular Exam: Present: regular rate, normal rhythm, normal heart sounds. Absent: systolic murmur, diastolic murmur, rubs, gallop, clicks GI/Abdominal exam: Present: soft, normal bowel sounds. Absent: distended, tenderness, guarding, rebound, rigid Extremities exam: Present: normal inspection, full ROM, normal capillary refill. Absent: tenderness, pedal edema, joint swelling, calf tenderness Back exam: Present: normal inspection Neurological exam: Present: alert, oriented X3, CN II-XII intact Psychiatric exam: Present: normal affect, normal mood Skin exam: Present: warm, dry, intact, normal color. Absent: rash Course Vital Signs 10/22/21 10/22/21 10/22/21 15:59 21:08 21:52 Temperature 98.3 F 98.4 F Pulse Rate 66 64 63 Respiratory 20 18 18 Rate Blood Pressure 173/63 173/73 180/72 O2 Sat by Pulse 96 99 98 Oximetry Medical Decision Making - Medical Decision Making On arrival patient is placed into room 18. A thorough history and physical exam was performed. Patient does test positive for Covid here and therefore is given antibodies. Discharged home and instructed to follow-up with her primary care doctor in 2-4 days. Return for any new worsening symptoms. Patient. Treatment plan was discharged home in stable condition - Lab Data Lab Results 10/22/21 Range/Units 16:03 Coronavirus (PCR) Detected A (Not Detectd) Disposition Clinical Impression: COVID-19 Disposition: HOME SELF-CARE Condition: Stable Instructions (If sedation given, give patient instructions): COVID-19 (Coronavirus Disease 2019) (ED) Additional Instructions: Please follow-up with your primary care doctor in 2-4 days. Return for any new or worsening symptoms Is patient prescribed a controlled substance at d/c from ED?: No Referrals: Reinier Jolly MD [Primary Care Provider] - 1-2 days Time of Disposition: 20:42
[2021-10-22] MEDS ORDERED: BEBTELOVIMAB (EUA) 175 MG/2 ML VIAL IV ONE (20:45)
[2021-10-22 21:19] VITALS: RESP 18
[2021-10-22 22:14] VITALS: BP 180/72; PULSE 63; TEMP 98.4
== END 2021-10-22 21:52 | disposition home or self-care (01) ==
LOC: EC 15:55
DX: U07.1 COVID-19 (principal); E78.5 Hyperlipidemia, unspecified; I10 Essential (primary) hypertension; I48.91 Unspecified atrial fibrillation; Z88.0 Allergy status to penicillin; Z88.8 Allergy status to other drugs, medicaments and biological substances; Z91.011 Allergy to milk products; Z79.899 Other long term (current) drug therapy
CPT/HCPCS: 87635; 99283; Q0222

== ENCOUNTER 2022-10-25 06:17 | Day surgery (SDC) | payer MEDICARE ==
[~2022-10-25 06:17] MED LIST changes: -CLINDAMYCIN 600 MG in SODIUM CHLORIDE 0.9% IRRIGATIO 250 ML IRRIGATION ONE; -CLINDAMYCIN 900 MG in DEXTROSE 5% IN WATER 50 ML IVPB ONE
[2022-10-25] MEDS ORDERED: SODIUM CHLORIDE 0.9% 500 ML 500 ML IV ONE (06:58)
[2022-10-25 07:20] VITALS: RESP 16; TEMP 98.1
[2022-10-25 07:20] LABS: Glucose,Whole Blood 108 mg/dL (70-110)
[2022-10-25] MEDS ORDERED: IOPAMIDOL-370 100ML BTL INJ ONE ×2 (07:22)
[2022-10-25 08:36] LABS: African American GFR (CKD) >90 (>60 ml/min/1.73 sqM); Anion Gap 7 mmol/L; Blood Urea Nitrogen 29 mg/dL (7-17); Calcium 8.6 mg/dL (8.4-10.2); Carbon Dioxide 24 mmol/L (22-30); Chloride 111 mmol/L (98-107); Glucose 104 mg/dL (74-99); Non-African American GFR(CKD) 89 (>60 ml/min/1.73 sqM); Sodium 142 mmol/L (137-145)
[2022-10-25 08:44] LABS: Potassium 4.5 mmol/L (3.5-5.1)
[2022-10-25 09:35] VITALS: BP 155/67; PULSE 63
--- NOTE | 2022-10-25 18:11 | P.HPCAR ---
History of Present Illness This is Dr. Fallon dictating an H/P on this patient The patient was interviewed and examined IMPRESSION / ASSESSMENT: RV pacing lead malfunction with high impedances and high thresholds in the bipolar mode Hypertrophic cardio myopathy Sick sinus syndrome 30-35% atrial pacing 22% RV pacing Hypertension Prediabetes CAD status post stenting PLAN: Cinefluoroscopy of the leads to look for any lead fracture in the RV lead Pacemaker interrogation and reprogramming Left upper extremity venogram Further management per results of the test HPI Patient is doing well from a cardiac standpoint. No chest discomfort dizziness or lightheadedness She has a history of atrial fibrillation, paroxysmal She has hypertrophic arthropathy She has had no problems recently She underwent a basic interrogation the office H revealed high impedances and thresholds in the RV lead in the bipolar mood ROS: No fever chills or rigors, no cough, phlegm or expectoration, no nausea, vomiting or diarrhea, no hematuria, dysuria, no musculoskeletal complaints, no strokes or seizures, no skin lesions. EXAMINATION: On examination blood pressure 186/81 mmHg pulse rate in the 50s and 60s Heart sounds are normal S1 and S2 normal Breath sounds are clear REVIEW OF LABS, ECG & MEDICAL DATA Medications reviewed Physical Exam Vitals: Vital Signs Temp Pulse Pulse Resp BP Pulse Ox 10/25/22 08:57 63 16 155/67 97 10/25/22 08:27 66 16 167/77 97 10/25/22 08:12 61 16 189/76 97 10/25/22 07:57 58 L 16 188/78 98 10/25/22 07:42 56 L 16 186/81 97 10/25/22 07:17 98.1 F 6 L 16 205/90 96 Intake and Output 10/25/22 10/25/22 10/25/22 06:59 14:59 22:59 Intake Total 50 240 Balance 50 240 Intake: IV 50 0 Oral 240 Other: # Voids 1 Weight 73.4 kg 73.4 kg Past Medical History Past Medical History: Atrial Fibrillation, Coronary Artery Disease (CAD), Hyperlipidemia, Hypertension, Osteoarthritis (OA) Additional Past Medical History / Comment(s): heart murmer, diverticulosis, "prediabetic"diet control, uses cane for balance problems see dr fallon's h & p History of Any Multi-Drug Resistant Organisms: None Reported Past Surgical History: AICD, Heart Catheterization With Stent, Pacemaker Additional Past Surgical History / Comment(s): total 3 stents, one of which was a replacement for one already in place colonoscopy, FALLON/cardioversion, Past Anesthesia/Blood Transfusion Reactions: No Reported Reaction Date of Last Stent Placement:: 02/06/18 Type of Cardiac Device: Unknown Device Placement Date:: aug 01, 2018 Smoking Status: Never smoker - Past Family History Mother Family Medical History: No Reported History Son(s) Family Medical History: Deep Vein Thrombosis (DVT) Physical Examination Vital Signs Temp Pulse Pulse Resp BP Pulse Ox 10/25/22 08:57 63 16 155/67 97 10/25/22 08:27 66 16 167/77 97 10/25/22 08:12 61 16 189/76 97 10/25/22 07:57 58 L 16 188/78 98 10/25/22 07:42 56 L 16 186/81 97 10/25/22 07:17 98.1 F 6 L 16 205/90 96 Intake and Output 10/25/22 10/25/22 10/25/22 06:59 14:59 22:59 Intake Total 50 240 Balance 50 240 Intake: IV 50 0 Oral 240 Other: # Voids 1 Weight 73.4 kg 73.4 kg Results 10/25/22 08:12 Comprehensive Metabolic Panel 10/25/22 Range/Units 08:12 Sodium 142 (137-145) mmol/L Potassium 4.5 (3.5-5.1) mmol/L Chloride 111 H (98-107) mmol/L Carbon Dioxide 24 (22-30) mmol/L BUN 29 H (7-17) mg/dL Creatinine 0.58 (0.52-1.04) mg/dL Glucose 104 H (74-99) mg/dL Calcium 8.6 (8.4-10.2) mg/dL Intake and Output 10/25/22 10/25/22 10/25/22 06:59 14:59 22:59 Intake Total 50 240 Balance 50 240 Intake: IV 50 0 Oral 240 Other: # Voids 1 Weight 73.4 kg 73.4 kg Patient Weight 10/26/22 06:59 Weight 73.4 kg 10/25/22 08:12
--- NOTE | 2022-10-25 18:16 | P.EPPROC ---
- EP Procedure Note Electrophysiology Procedure Note: Diagnosis High RV lead thresholds and impedances, [employer] pacemaker device dual-chamber implanted about 4 years back Cinefluoroscopy of the leads performed No fractures or breaks noted in the RV lead. 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 The atrial lead is functioning normally and the patient uses atrial lead almost 35% times RV pacing approximately 20% times She is on an MVP mode The RV unipolar parameters are quite stable I would hold off on the implantation of another lead from the right side at this time Use the unipolar configuration for RV lead If the impedances and thresholds arise in the unipolar mode then implantation of a right-sided RV lead should be considered with tunneling across as long as the atrial lead function is normal I also discussed the possibility of laser lead extraction by would not recommended at this time Frequent monitoring especially wireless monitoring of the impedances in the unipolar configuration of the RV lead
== END 2022-10-25 09:09 | disposition home or self-care (01) ==
LOC: CATHEP 06:17
PROVIDERS: ATTEND Internal Medicine Clinical Cardiac Electrophysiology
DX: T85.111A Breakdown (mechanical) of implanted electronic neurostimulator of peripheral nerve electrode (lead), initial encounter (principal); Z88.0 Allergy status to penicillin; Z79.82 Long term (current) use of aspirin
CPT/HCPCS: 36005; 75820; 80048; 84443; Q9967

== ENCOUNTER → 2023-02-21 | Outpatient (CLI) | payer MEDICARE ==
--- NOTE | 2023-02-22 22:27 | US ---
EXAMINATION TYPE: US kidneys/renal and bladder DATE OF EXAM: 02/21/2023 COMPARISON: Ultrasound 04/07/2017 CLINICAL INDICATION: Female, 77 years old with history of N18.9 CHRONIC KIDNEY DISEASE; ckd hematuria limited had to scan patient in wheel chair. FINDINGS: Limited detailed assessment due to patient body habitus. EXAM MEASUREMENTS: Right Kidney: 10.9 x 4.1 x 4.1 cm Left Kidney: 9.1 x 4.4 x 3.4 cm Right Kidney: There is a midpole cortical cyst measuring 1.4 x 1.6 cm. We note that image 19 showing this cyst is mislabeled left kidney. No hydronephrosis. Left Kidney: No hydronephrosis or masses seen No hydronephrosis on either side. Bladder: anechoic Bilateral Jets seen: no IMPRESSION: 1. No hydronephrosis. 2. Limiting detailed assessment of the renal parenchyma due to patient body habitus. 3. Benign 1.6 cm cortical cyst mid right kidney.
== END | disposition home or self-care (01) ==
LOC: RADUSWWP 13:50
PROVIDERS: ATTEND Internal Medicine Geriatric Medicine
DX: N18.9 Chronic kidney disease, unspecified (principal); R31.9 Hematuria, unspecified
CPT/HCPCS: 76770